=== PATIENT | male | born 1995 | race American Indian/Alaskan Native ===

== ENCOUNTER 2017-10-31 12:33 | Emergency (ER) | payer SELFPAY ==
[2017-10-31 12:46] VITALS: BP 112/61
== END 2017-10-31 14:30 | disposition left against medical advice (07) ==
LOC: EDBD → ED 12:33
DX: R06.02 Shortness of breath (principal); Z53.21 Procedure and treatment not carried out due to patient leaving prior to being seen by health care provider
CPT/HCPCS: 93005; 93010

== ENCOUNTER 2018-08-01 20:16 | Emergency (ER) | payer OTHER ==
--- NOTE | 2018-08-01 20:59 | Emergency Department Report ---
Blank Doc - Documentation Documentation: This is a 22-year-old male that presents with toothache with right facial swel ling. This initial assessment/diagnostic orders/clinical plan/treatment(s) is/are subject to change based on patient's health status, clinical progression and re- assessment by fellow clinical providers in the ED. Further treatment and workup at subsequent clinical providers discretion. Patient/guardians urged not to elope from the ED as their condition may be serious if not clinically assessed and managed. Initial orders include: 1- Patient sent to [facility] for further evaluation and treatment 2- labs for possible CT to r/o abscess
[2018-08-01 21:23] LABS: Basophils # (Auto) 0.1 K/mm3 (0.0-0.1); Basophils % (Auto) 0.8 % (0.0-1.8); Eosinophils # (Auto) 0.2 K/mm3 (0.0-0.4); Eosinophils % (Auto) 3.4 % (0.0-4.3); Hematocrit 35.2 % (35.5-45.6); Lymphocytes # (Auto) 1.2 K/mm3 (1.2-5.4); Mean Corpuscular HGB Conc 34 % (32-34); Mean Corpuscular Volume 88 fl (84-94); Monocytes # (Auto) 0.4 K/mm3 (0.0-0.8); Platelet Count 286 K/mm3 (140-440); Red Blood Count 4.01 M/mm3 (3.65-5.03); Red Cell Distribution Width 15.9 % (13.2-15.2)
[2018-08-01 21:34] LABS: BUN/Creatinine Ratio 8; Blood Urea Nitrogen 8 mg/dL (9-20); Calcium 9.5 mg/dL (8.4-10.2); Hemolysis Index 2
[2018-08-01] MEDS ORDERED: MORPHINE IV ONE (23:12)
[2018-08-01] MEDS ORDERED: CLEOCIN 900 MG/50 mL 900 MG/50 ML BAG IV ONE (23:13)
[2018-08-01] MEDS ORDERED: NACL 0.9% 1000 ML 1,000 ML IV ONE (23:13)
--- NOTE | 2018-08-01 23:15 | Emergency Department Report ---
HPI - General Chief Complaint: Dental/Oral Time Seen by Provider: 08/01/18 20:58 - HPI HPI: 22-year-old -[place] male presents to the emergency department with complaint of left-sided jaw swelling and pain that has been going on and getting progressively worse over the past week. The patient has a known tooth infection but admits to stopping his amoxicillin antibiotics prior to its completion. He has some pain and swelling but denies any fever, drooling. He is a tobacco smoker but denies any illicit drug use. He has a dentist and has an appointment with them tomorrow. No recent travel or sick contacts at home. ED Past Medical Hx - Past Medical History Hx Arthritis: Yes - Surgical History Past Surgical History?: Yes Additional Surgical History: testicular at age 9 - Social History Smoking Status: Current Every Day Smoker Substance Use Type: Alcohol ED Review of Systems ROS: Stated complaint: ABCESS Other details as noted in HPI Constitutional: denies: chills, fever Eyes: denies: eye pain, vision change ENT: dental pain, other (jaw/face pain and swelling) Respiratory: denies: cough, shortness of breath Cardiovascular: denies: chest pain, palpitations Gastrointestinal: denies: abdominal pain, vomiting Genitourinary: denies: dysuria, discharge Musculoskeletal: denies: back pain, arthralgia Skin: denies: rash, lesions Neurological: denies: headache, weakness Physical Exam - Physical Exam Vital Signs: Vital Signs 08/01/18 08/01/18 20:58 23:11 Temperature 99.4 F 98.9 F Pulse Rate 80 77 Respiratory 18 16 Rate Blood Pressure 123/68 Blood Pressure 108/64 [Right] O2 Sat by Pulse 99 99 Oximetry Physical Exam: GENERAL: The patient is well-developed well-nourished. HENT: Normocephalic. Atraumatic. Patient has moist mucous membranes. Mild trismus. No drooling. Patient has multiple dental caries. There is some soft tissue swelling to the gumline along the left lower premolars and molars that is tender to palpation. There is also some fluctuance and soft tissue swelling to the soft tissue of the left lower face/cheek. There is erythema and some induration in this area as well. All this appears consistent with an abscess and cellulitis. EYES: Extraocular motions are intact. Pupils equal reactive to light bilaterally. NECK: Supple. Trachea is midline. CHEST/LUNGS: Clear to auscultation. There is no respiratory distress noted. HEART/CARDIOVASCULAR: Regular. There is no tachycardia. There is no murmur. ABDOMEN: Abdomen is soft, nontender. Patient has normal bowel sounds. There is no abdominal distention. SKIN: Skin is warm and dry. NEURO: The patient is awake, alert, and oriented. The patient is cooperative. The patient has no focal neurologic deficits. The patient has normal speech. MUSCULOSKELETAL: There is no tenderness or deformity.There is no evidence of a cute injury. ED Course Vital Signs 08/01/18 08/01/18 20:58 23:11 Temperature 99.4 F 98.9 F Pulse Rate 80 77 Respiratory 18 16 Rate Blood Pressure 123/68 Blood Pressure 108/64 [Right] O2 Sat by Pulse 99 99 Oximetry - Consultations Consultation #1: 08/02/18 03:[address] scan results showed some osteomyelitis of the mandible body, I contacted [facility] seeking transfer for oromaxillofacial surgery. The patient was accepted for transfer to the emergency department by the OMFS attending, Dr. Mckeon. ED Medical Decision Making - Lab Data Result diagrams: 08/01/18 21:05 08/01/18 21:05 - Radiology Data Radiology results: report reviewed PROCEDURE: CT FACIAL BONES W CON TECHNIQUE: Routine axial imaging was obtained of the facial bones following the intravenous injection of 100 cc of Omnipaque 300. Sagittal and coronal reconstructions reviewed. HISTORY: left lower tooth / jaw abscess, pain COMPARISONS: None FINDINGS: There is a soft tissue abscess abutting the body of the mandible on the left side measuring 3.4 cm x 2.3 cm x 2.5 cm with extensive surrounding cellulitis. There is an associated infected left molar tooth with breech of the cortex along with periapical lucency that is accounting for this. There is mild periosteal reaction abutting the region of the cortex. There are enlarged submandibular lymph nodes. No additional abscesses are identified. The sinuses are clear. The orbital rims and floors appear intact. The vascular structures enhance normally. The intraorbital structures appear normal. IMPRESSION: Soft tissue abscess abutting the cortex of the body of the mandible on the left side with measurements as described along with overlying cellulitis. Extensive left molar tooth decay with breech of the outer cortex of the mandible compatible with osteomyelitis. Enlarged left submandibular lymph nodes noted. This document is electronically signed by Wilman Murguia MD., Aug 02 2018 01:49:58 AM ET Transcribed By: RB Dictated By: WILMAN MURGUIA MD Electronically Authenticated By: WILMAN MURGUIA MD Signed Date/Time: 08/02/18 0151 - Medical Decision Making This patient presents to the emergency department with left lower facial swelling, left lower jaw/tooth pain and concern for an infection. Patient's labs have been unremarkable. Vital signs stable throughout his ED course. On examination he has what appears to be an abscess and cellulitis of the soft tissue of the left lower cheek/face that appears to be stemming from a recent dental infection. A CT scan of the facial bones with IV contrast was done and came back confirming a 3.5 cm soft tissue abscess with severe/extensive left- sided facial soft tissue cellulitis. However the patient also appears to have some signs of osteomyelitis of the body of the mandible. For this reason, I contacted [facility] and the patient was accepted as an ER to ER transfer by the OMFS attending. The patient has already received IV fluid resuscitation, pain medication, IV antibiotics. I discussed the labs, imaging results and the plan for transfer with the patient who understands and agrees. The patient has left the emergency department in stable condition. - Differential Diagnosis cellulitis, abscess, osteomyelitis Critical Care Time: No Critical care attestation.: If time is entered above; I have spent that time in minutes in the direct care of this critically ill patient, excluding procedure time. ED Disposition Clinical Impression: Osteomyelitis of mandible, Dental abscess, Facial abscess, Facial cellulitis Disposition: [id number]/TX-[id number] ANOTHER TYPE HLTHCARE Is pt being admited?: Yes Condition: Fair Referrals: BRITNI PARISI MD [Primary Care Provider] - 3-5 Days Time of Disposition: 03:27
[2018-08-02] MEDS ORDERED: NACL 0.9% 1000 ML 1,000 ML IV ONE (01:13)
--- NOTE | 2018-08-02 01:51 | Cat Scan Report ---
PROCEDURE: CT FACIAL BONES W CON TECHNIQUE: Routine axial imaging was obtained of the facial bones following the intravenous injectio n of 100 cc of Omnipaque 300. Sagittal and coronal reconstructions reviewed. HISTORY: left lower tooth / jaw abscess, pain COMPARISONS: None FINDINGS: There is a soft tissue abscess abutting the body of the mandible on the left side measuring 3.4 cm x 2.3 cm x 2.5 cm with extensive surrounding cellulitis. There is an associated infected left molar too th with breech of the cortex along with periapical lucency that is accounting for this. There is mild periosteal reaction abutting the region of the cortex. There are enlarged submandibular lymph nodes. No additional abscesses are identified. The sinuses are clear. The orbital rims and floors appear in tact. The vascular structures enhance normally. The intraorbital structures appear normal. IMPRESSION: Soft tissue abscess abutting the cortex of the body of the mandible on the left side with measurement s as described along with overlying cellulitis. Extensive left molar tooth decay with breech of the outer cortex of the mandible compatible with oste omyelitis. Enlarged left submandibular lymph nodes noted. This document is electronically signed by Wilman Murguia MD., Aug 02 2018 01:49:58 AM ET
[2018-08-02] MEDS ORDERED: XYLOCAINE 2% INFILTRATI ONE (01:55)
[2018-08-02] MEDS ORDERED: SUBLIMAZE IV ONE (01:59)
[2018-08-02 02:37] VITALS: BP 112/78
== END 2018-08-02 03:15 | disposition other institution (70) ==
LOC: ED 20:16
DX: K04.7 Periapical abscess without sinus (principal); M27.2 Inflammatory conditions of jaws; L02.01 Cutaneous abscess of face; L03.211 Cellulitis of face; F17.200 Nicotine dependence, unspecified, uncomplicated; M19.90 Unspecified osteoarthritis, unspecified site; Z98.890 Other specified postprocedural states
CPT/HCPCS: 36415; 70487; 80048; 85025; 96365; 96375; 99285; J2270; J3010; J7030; Q9967